=== PATIENT | female | born 1960 | race Caucasian/White ===

== ENCOUNTER 2020-12-03 08:28 | Day surgery (SDC) | payer BC ==
[2020-11-28 11:34] VITALS: BMI 22.8
[~2020-12-03 08:28] MED LIST: CYCLOPENTOLATE HCL 1% OPHTH SOLN 2 ML BOTTLE OS SCH; KETOROLAC TROMETHAMINE 0.5% EYE DROP 1 DROP DROPS OS SCH; OFLOXACIN 0.3% OPHTHALMIC SOLUTION 5 ML BOTTLE OS SCH; PHENYLEPHRINE 2.5% OPHTH SOLN 15 ML BOTTLE OS SCH; TROPICAMIDE 1% OPHTH SOLN 15 ML BOTTLE OS SCH
[2020-12-03] MEDS ORDERED: TROPICAMIDE 1% OPHTH SOLN 15 ML BOTTLE ONE (08:48)
[2020-12-03] MEDS ORDERED: KETOROLAC TROMETHAMINE 0.5% EYE DROP 1 DROP DROPS ONE (08:48)
[2020-12-03] MEDS ORDERED: OFLOXACIN 0.3% OPHTHALMIC SOLUTION 5 ML BOTTLE ONE (08:48)
[2020-12-03] MEDS ORDERED: PHENYLEPHRINE 2.5% OPHTH SOLN 15 ML BOTTLE ONE (08:48)
[2020-12-03] MEDS ORDERED: CYCLOPENTOLATE HCL 1% OPHTH SOLN 2 ML BOTTLE ONE (08:48)
[2020-12-03] MEDS ORDERED: CYCLOPENTOLATE HCL 1% OPHTH SOLN 2 ML BOTTLE OS ONE ×5 (08:50→09:10)
[2020-12-03] MEDS ORDERED: PHENYLEPHRINE 2.5% OPHTH SOLN 15 ML BOTTLE OS ONE ×5 (08:50→09:10)
[2020-12-03] MEDS ORDERED: OFLOXACIN 0.3% OPHTHALMIC SOLUTION 5 ML BOTTLE OS ONE ×5 (08:50→09:10)
[2020-12-03] MEDS ORDERED: KETOROLAC TROMETHAMINE 0.5% EYE DROP 1 DROP DROPS OS ONE ×5 (08:50→09:10)
[2020-12-03] MEDS ORDERED: TROPICAMIDE 1% OPHTH SOLN 15 ML BOTTLE OS ONE ×5 (08:50→09:10)
[2020-12-03] MEDS ORDERED: TETRACAINE 0.5% OPHTH SOLN 2 ML BOTTLE ONE (10:27)
[2020-12-03] MEDS ORDERED: BACITRACIN/POLYMYXIN OPH OINT 3.5 GM TUBE ONE (10:27)
[2020-12-03] MEDS ORDERED: NEO/POLYMYX B SULF/DEXAMETH OPHTHALMIC 5ML BOTTLE ONE (10:27)
[2020-12-03] MEDS ORDERED: BETAXOLOL HCL 0.25% OPHTHALMIC 10 ML DROPSBTL ONE (10:27)
[2020-12-03] MEDS ORDERED: EPI-SHUGARCAINE (EPINEPHRINE 0.025% & LIDOCAINE-PF 0.75%) 4ML ONE (10:27)
[2020-12-03] MEDS ORDERED: POVIDONE-IODINE 5% OPHTHALMIC PREP 30 ML SOLUTION ONE (10:27)
[2020-12-03] MEDS ORDERED: KETOROLAC TROMETHAMINE 30 MG/1 ML VIAL ONE (10:28)
[2020-12-03] MEDS ORDERED: MIDAZOLAM HCL 2 MG/2 ML SINGLE DOSE VIAL ONE (10:28)
[2020-12-03] MEDS ORDERED: ACETAMINOPHEN 325 MG TABLET (FP) PO PRN (11:41)
[2020-12-03 17:17] VITALS: PULSE 72; TEMP 98.4
[2020-12-03 17:34] VITALS: BP 116/84
== END 2020-12-03 12:20 | disposition home or self-care (01) ==
LOC: FASU 08:28
PROVIDERS: ATTEND Ophthalmology
PROC: 08RK3JZ Replacement of Left Lens with Synthetic Substitute, Percutaneous Approach (ICD-10-PCS; principal; 2020-12-03 11:06)
DX: H26.9 Unspecified cataract (principal)

== ENCOUNTER 2020-12-17 09:21 | Day surgery (SDC) | payer BC ==
[2020-12-11 13:32] VITALS: BMI 22.8
[~2020-12-17 09:21] MED LIST changes: +CYCLOPENTOLATE HCL 1% OPHTH SOLN 2 ML BOTTLE OD SCH; -CYCLOPENTOLATE HCL 1% OPHTH SOLN 2 ML BOTTLE OS SCH; +KETOROLAC TROMETHAMINE 0.5% EYE DROP 1 DROP DROPS OD SCH; -KETOROLAC TROMETHAMINE 0.5% EYE DROP 1 DROP DROPS OS SCH; +OFLOXACIN 0.3% OPHTHALMIC SOLUTION 5 ML BOTTLE OD SCH; -OFLOXACIN 0.3% OPHTHALMIC SOLUTION 5 ML BOTTLE OS SCH; +PHENYLEPHRINE 2.5% OPHTH SOLN 15 ML BOTTLE OD SCH; -PHENYLEPHRINE 2.5% OPHTH SOLN 15 ML BOTTLE OS SCH; +TROPICAMIDE 1% OPHTH SOLN 15 ML BOTTLE OD SCH; -TROPICAMIDE 1% OPHTH SOLN 15 ML BOTTLE OS SCH
[2020-12-17] MEDS ORDERED: TROPICAMIDE 0.5% OPHTHALMIC SOLN 15 ML BOTTLE OD ONE ×5 (09:40→10:00)
[2020-12-17] MEDS ORDERED: CYCLOPENTOLATE HCL 1% OPHTH SOLN 2 ML BOTTLE OD ONE ×5 (09:40→10:00)
[2020-12-17] MEDS ORDERED: PHENYLEPHRINE 2.5% OPHTH SOLN 15 ML BOTTLE OD ONE ×5 (09:40→10:00)
[2020-12-17] MEDS ORDERED: OFLOXACIN 0.3% OPHTHALMIC SOLUTION 5 ML BOTTLE OD ONE ×5 (09:40→10:00)
[2020-12-17] MEDS ORDERED: KETOROLAC TROMETHAMINE 0.5% EYE DROP 1 DROP DROPS OD ONE ×5 (09:40→10:00)
[2020-12-17] MEDS ORDERED: PHENYLEPHRINE 2.5% OPHTH SOLN 15 ML BOTTLE ONE (09:43)
[2020-12-17] MEDS ORDERED: CYCLOPENTOLATE HCL 1% OPHTH SOLN 2 ML BOTTLE ONE (09:43)
[2020-12-17] MEDS ORDERED: TROPICAMIDE 1% OPHTH SOLN 15 ML BOTTLE ONE (09:43)
[2020-12-17] MEDS ORDERED: OFLOXACIN 0.3% OPHTHALMIC SOLUTION 5 ML BOTTLE ONE (09:43)
[2020-12-17] MEDS ORDERED: KETOROLAC TROMETHAMINE 0.5% EYE DROP 1 DROP DROPS ONE (09:43)
[2020-12-17] MEDS ORDERED: CYCLOPENTOLATE HCL 1% OPHTH SOLN 2 ML BOTTLE OD SCH (09:45)
[2020-12-17] MEDS ORDERED: TROPICAMIDE 1% OPHTH SOLN 15 ML BOTTLE OD SCH (09:45)
[2020-12-17] MEDS ORDERED: OFLOXACIN 0.3% OPHTHALMIC SOLUTION 5 ML BOTTLE OD SCH (09:45)
[2020-12-17] MEDS ORDERED: PHENYLEPHRINE 2.5% OPHTH SOLN 15 ML BOTTLE OD SCH (09:45)
[2020-12-17] MEDS ORDERED: KETOROLAC TROMETHAMINE 0.5% EYE DROP 1 DROP DROPS OD SCH (09:45)
[2020-12-17] MEDS ORDERED: MIDAZOLAM HCL 2 MG/2 ML SINGLE DOSE VIAL ONE ×2 (11:03)
[2020-12-17] MEDS ORDERED: BACITRACIN/POLYMYXIN OPH OINT 3.5 GM TUBE ONE (11:36)
[2020-12-17] MEDS ORDERED: NEO/POLYMYX B SULF/DEXAMETH OPHTHALMIC 5ML BOTTLE ONE (11:37)
[2020-12-17] MEDS ORDERED: POVIDONE-IODINE 5% OPHTHALMIC PREP 30 ML SOLUTION ONE (11:37)
[2020-12-17] MEDS ORDERED: EPI-SHUGARCAINE (EPINEPHRINE 0.025% & LIDOCAINE-PF 0.75%) 4ML ONE (11:37)
[2020-12-17] MEDS ORDERED: TETRACAINE 0.5% OPHTH SOLN 2 ML BOTTLE ONE (11:37)
[2020-12-17] MEDS ORDERED: BETAXOLOL HCL 0.25% OPHTHALMIC 10 ML DROPSBTL ONE (11:37)
[2020-12-17] MEDS ORDERED: ONDANSETRON 4 MG/2 ML VIAL ONE (11:46)
[2020-12-17] MEDS ORDERED: ACETAMINOPHEN 325 MG TABLET (FP) PO PRN (12:26)
[2020-12-17 12:41] VITALS: TEMP 98.2
[2020-12-17 13:01] VITALS: BP 117/77; PULSE 76
== END 2020-12-17 13:15 | disposition home or self-care (01) ==
LOC: FASU 09:21
PROVIDERS: ATTEND Ophthalmology
PROC: 08RJ3JZ Replacement of Right Lens with Synthetic Substitute, Percutaneous Approach (ICD-10-PCS; principal; 2020-12-17 12:03)
DX: H26.9 Unspecified cataract (principal)